=== PATIENT | male | born 1995 | race Caucasian/White ===

== ENCOUNTER 2018-06-17 15:05 | Emergency (ER) | payer OTHER, SELFPAY ==
[2018-06-17 15:07] VITALS: BP 147/97; PULSE 85; RESP 15; TEMP 37.4; O2SAT 99; BMI 24.5
--- NOTE | 2018-06-17 15:20 | EKG12_ITS ---
Test Reason : CP Blood Pressure : / mmHG Vent. Rate : 086 BPM Atrial Rate : 086 BPM P-R Int : 140 ms QRS Dur : 104 ms QT Int : 360 ms P-R-T Axes : 065 071 021 degrees QTc Int : 430 ms Normal sinus rhythm Normal ECG Confirmed by JACOBY HERRERA, DAY ([id number]), fan mail editor SHARLENE FORD ([id number]) on 06/21/2018 9:00:22 AM Referred By: MARLENE/PRIYANKA Confirmed By:DAY DOZIER MD
--- NOTE | 2018-06-17 15:20 | ED.VISSUMM ---
- ER Visit Summary Date of Service: 06/17/18 Chief Complaint: Chest pain History of Present Illness: The patient is a [address] Vides. He reports his left-sided chest pain began 2 days ago. Sick constant sharp pain is 4-10 at worst and 2 out of 10 currently. Is worsened by nothing including exertion, movement of his arm or torso, breathing, or laying down. It is also relieved by nothing. He denies any radiation of the pain. No associated nausea, vomiting, diaphoresis, or shortness of breath. Patient reports that at 215 while at rest he had the onset of a fast, regular heartbeat that lasted approximately 30 minutes. Reports that during this he was lightheaded and shaky. He did not pass out. He was not short of breath. Is not been drinking caffeine or taking decongestants. Patient denies any personal family history of DVT. No recent travel. No ankle swelling or calf pain. No recent trauma. No fall, MVA, or change in activity. Physical Examination: Vitals: Stable. Afebrile. General: Well-nourished and well-developed. Head: Normocephalic atraumatic. Neck: Supple, no lymphadenopathy. No JVD. Nontender. Cardiovascular: Regular rate and rhythm. No murmurs. Respiratory: No respiratory distress. Clear to auscultation bilaterally. Abdominal: Soft, nontender, nondistended, normal bowel sounds. No guarding, rebound, or peritoneal signs. Back: Nontender. Extremities: Nontender, no edema. Skin: Normal color, no rash. Neurologic: Alert and oriented ?3. Cranial nerves II through XII are intact. Normal strength and sensation. Psych: Normal affect. Test Results: EKG is sinus at 86 with a T wave inversion in lead III and nonspecific ST changes. There is no old EKG for comparison. CBC is normal. Chem-7 is remarkable for potassium 3.2 and glucose 144. Troponin is negative. TSH is normal. Chest x-ray shows no acute disease. Emergency Department Course and Treatment: Patient had an IV placed. He was given a liter of normal saline. He is been resting comfortably here. There is no ectopy on the monitor. Treatment Plan: I had a prolonged discussion with the patient about foods that are high in potassium and suggested that he eat these rather than take potassium supplements. Discussed vagal maneuvers with him. He suggested that if he has palpitations again he should come to the emergency department sooner so that we may be able to catch this on the monitor or with any EEG. Follow-up his primary care physician in 3-5 days if not improving. Return to the emergency department for any worsening symptoms. Disposition: To home in improved and stable condition. Impression: 1. Atypical chest pain. 2. Palpitations. This note was generated with [employer] dictation software. It may contain incorrect words, spelling, and punctuation that were not noted in review of the chart prior to signing ED Disposition - Plan for ED Patient: Instructions: ED Palpitations, ED Chest Pain Atypical Unkn Cause Referrals: Jayro Vides, DO [Primary Care Provider] - 3-5 Days if not improving
--- NOTE | 2018-06-17 15:22 | RAD_ITS ---
STUDY: X-RAY CHEST REASON FOR EXAM: Male, 23 years old. Chest pain. TECHNIQUE: Single AP portable view of the chest. COMPARISON: None. FINDINGS: EKG electrodes are seen. The lungs are clear and expanded. There is no demonstrated pleural abnormality. Normal size heart. Normal mediastinum and binh. Normal visualized pulmonary arteries. Normal visualized aortic arch and descending thoracic aorta. Normal visualized thoracic spine. Normal visualized ribs, clavicles, and shoulders. There is no demonstrated abnormality of the visualized soft tissue structures of the upper abdomen. RAD/Chest 1 View (Portable) IMPRESSION: Normal x-ray examination of the chest. Electronically Signed: Hernan Dixon MD at 15:36 EST , Service support ,
[2018-06-17 15:23] VITALS: O2SAT 99
--- NOTE | 2018-06-17 15:23 | ED.DCSUM_ITS ---
- ER Visit Summary Date of Service: 06/17/18 Chief Complaint: Chest pain History of Present Illness: The patient is a [address] Vides. He reports his left-sided chest pain began 2 days ago. Sick constant sharp pain is 4-10 at worst and 2 out of 10 currently. Is worsened by nothing including exert ion, movement of his arm or torso, breathing, or laying down. It is also relieved by nothing. He denies any radiation of the pain. No associated nausea, vomiting, diaphoresis, or shortness of breath. Patient reports that at 215 while at rest he had the onset of a fast, regular heartbeat that lasted approximately 30 minutes. Reports that during this he was lightheaded and shaky. He did not pass out. He was not short of breath. Is not been drinking caffeine or taking decongestants. Patient denies any personal family history of DVT. No recent travel. No ankle swelling or calf pain. No recent trauma. No fall, MVA, or change in activity. Physical Examination: Vitals: Stable. Afebrile. General: Well-nourished and well-developed. Head: Normocephalic atraumatic. Neck: Supple, no lymphadenopathy. No JVD. Nontender. Cardiovascular: Regular rate and rhythm. No murmurs. Respiratory: No respiratory distress. Clear to auscultation bilaterally. Abdominal: Soft, nontender, nondistended, normal bowel sounds. No guarding, rebound, or peritoneal signs. Back: Nontender. Extremities: Nontender, no edema. Skin: Normal color, no rash. Neurologic: Alert and oriented ?3. Cranial nerves II through XII are intact. Normal strength and sensation. Psych: Normal affect. Test Results: EKG is sinus at 86 with a T wave inversion in lead III and no nspecific ST changes. There is no old EKG for comparison. CBC is normal. Chem-7 is remarkable for potassium 3.2 and glucose 144. Troponin is negative. TSH is normal. Chest x-ray shows no acute disease. Emergency Department Course and Treatment: Patient had an IV placed. He was given a liter of normal saline. He is been resting comfortably here. There is no ectopy on the monitor. Treatment Plan: I had a prolonged discussion with the patient about foods that are high in potassium and suggested that he eat these rather than take potassium supplements. Discussed vagal maneuvers with him. He suggested that if he has palpitations again he should come to the emergency department sooner so that we may be able to catch this on the monitor or with any EEG. Follow-up his primary care physician in 3-5 days if not improving. Return to the emergency department for any worsening symptoms. Disposition: To home in improved and stable condition. Impression: 1. Atypical chest pain. 2. Palpitations. This note was generated with [employer] dictation software. It may contain incorrect words, spelling, and punctuation that were not noted in review of the chart prior to signing ED Disposition - Plan for ED Patient: Instructions: ED Palpitations, ED Chest Pain Atypical Unkn Cause Referrals: Jayro Vides, DO [Primary Care Provider] - 3-5 Days if not improving
[2018-06-17 15:26] LABS: Absolute Lymphocyte Count 2.03 X10^3/ul (0.83-4.51); Absolute Neutrophil Count 3.1 X10^3/uL (2.0-7.7); Basophil# 0.02 X10^3/uL; Basophil% 0.4 % (0-1); Eosinophil# 0.04 X10^3/uL; Eosinophils% 0.7 % (0-5); Hematocrit 43.3 % (40-54); Hemoglobin 14.6 g/dl (13.0-16.5); Lymphocyte # 2.03 X10^3/ul (4.0); Lymphocyte % 35.9 % (19-41); Mean Corp Hgb Conc 33.7 g/gl (32-36); Mean Corpuscular Volume 88.9 fL (80-94); Mean Platelet Vol. 10.3 fl (6.2-12.0); Monocyte# 0.43 X10^3/uL; Monocyte% 7.6 % (0-10); Neutrophil # 3.13 X10^3/uL (2.7-7.7); Neutrophil % 55.2 % (47-70); Platelet Count 202 K/mm3 (150-450); RBC Distribution Width SD 38.6 fl (35.1-43.9); Red Blood Count 4.87 M/mm3 (4.6-6.2); White Blood Count 5.7 K/mm3 (4.4-11.0)
[2018-06-17] MEDS: 0.9% Normal Saline 1,000 ML 1000 ML IV (15:27)
[2018-06-17 15:28] LABS: POSITIVE COUNT NO; POSITIVE DIFFERENTIAL NO; POSITIVE MORPHOLOGY NO
[2018-06-17 15:52] LABS: Anion Gap 13 (5-15); BUN 8 mg/dL (7-18); BUN/Creat Ratio 7.3 RATIO (10-20); Calcium,Total 8.9 mg/dL (8.5-10.1); Chloride 105 mmol/L (98-107); Creatinine, Serum 1.09 mg/dL (0.70-1.30); EST Glomerular Filtration Rate 89 mL/min (>60); Est Glom Filt Rate - Afr Amer 108 mL/min (>60); Estimated Creatinine Clearance 122.55 ml/min; Glucose 144 mg/dL (74-106); Potassium 3.2 mmol/L (3.5-5.1); Sodium Level 144 mmol/L (136-145); Thyroid Stim Hormone (TSH) 2.56 uIU/mL (0.358-3.74)
[2018-06-17 16:24] VITALS: BP 135/76; PULSE 87; RESP 17; O2SAT 98
--- NOTE | 2018-06-17 16:25 | ED.RN ---
PT GIVEN WRITTEN AND VERBAL DISCHARGE INSTRUCTIONS. PT VERBALIZES UNDERSTANDING AND DENIES ANY FURTHER QUESTIONS. IV D/C AND COVERED WITH 2X2 GAUZE AND PAPER TAPE. PT DRESSES SELF AND AMBULATES OUT OF DEPT BY SELF. A+[id number].
== END 2018-06-17 16:27 | disposition home or self-care (01) ==
LOC: ED 15:50
PROVIDERS: Emergency Provider Emergency Medicine; Family Provider Family Medicine; PCP Family Medicine
DX: R07.89 Other chest pain (principal); R00.2 Palpitations; R42 Dizziness and giddiness; R25.8 Other abnormal involuntary movements; F17.200 Nicotine dependence, unspecified, uncomplicated
CPT/HCPCS: 71045; 80048; 84443; 84484; 85025; 93005; 96360; 99285; J7030; A4216